=== PATIENT | male | born 1940 | race Caucasian/White ===

== ENCOUNTER 2018-12-30 06:13 | Inpatient (IN) ==
[2018-12-30] MEDS ORDERED: POTASSIUM CHLORIDE RIDER 10 MEQ in PREMIX 1 EACH IV PRN (07:46)
[2018-12-30] MEDS ORDERED: MAGNESIUM SULF RIDER 2 GM in PREMIX 1 EACH IV PRN (07:46)
[2018-12-30] MEDS ORDERED: diphenhydrAMINE CAP 25 MG CAPSULE PO ONE (07:46)
[2018-12-30] MEDS ORDERED: DIAZEPAM 5 MG TABLET PO ONE (07:46)
[2018-12-30] MEDS ORDERED: ASPIRIN 325 MG TABLET PO ONE (07:46)
[2018-12-30] MEDS ORDERED: ASPIRIN 325 MG TABLET ONE (07:49)
[2018-12-30] MEDS ORDERED: DIAZEPAM 5 MG TABLET ONE (07:49)
[2018-12-30] MEDS ORDERED: diphenhydrAMINE CAP 25 MG CAPSULE ONE (07:49)
[2018-12-30] MEDS: SODIUM CHLORIDE 0.9% 1,000 ML IV SCH ×2 (07:55→17:26)
[2018-12-30 08:26] LABS: Basophils % 0.5 % (0.0-0.8); Eosinophils % 0.3 % (0.00-10.9); Hematocrit 38.7 VOL% (42.0-52.0); Hemoglobin 12.5 GM/DL (14.0-18.0); Immature Granulocytes % 0.3 %; Immature Granulocytes Absolute 0.02 #; Lymphocytes % 16.7 % (21.2-54.2); Mean Corpuscular HGB Conc 32.3 GM/DL (32-36); Mean Platelet Volume 10.1 FL (9.6-12.0); Monocytes % 12.3 % (1.7-12.7); Neutrophils % 69.9 % (38.7-73.9); Platelet Count 133 T/CUMM (130-400); Red Blood Count 3.87 MC/CUMM (3.8-5.5); Red Cell Distribution Width 13.2 % (9.3-17.3)
[2018-12-30] MEDS ORDERED: LIDOCAINE 1% 20 ML VIAL ONE (08:32)
[2018-12-30] MEDS ORDERED: HYDROmorphone 2 MG/1 ML VIAL ONE (08:33)
[2018-12-30] MEDS ORDERED: MIDAZOLAM 2 MG/2 ML VIAL ONE (08:33)
[2018-12-30 08:35] LABS: INR 1.1; PT Patient Result 11.4 SECS
[2018-12-30 08:46] LABS: Osmolality,Calculated 286.1 MOS/KG (273-304)
[2018-12-30] MEDS ORDERED: ADENOSINE 90 MG/30 ML VIAL IV ONE (09:23)
[2018-12-30] MEDS ORDERED: HEPARIN 5,000 UNIT/1 ML VIAL ONE (09:25)
[2018-12-30] MEDS ORDERED: NITROPRUSSIDE 50 MG/2 ML VIAL ONE (10:02)
[2018-12-30] MEDS ORDERED: NITROGLYCERIN SL 0.4 MG TABLET SL PRN (10:25)
[2018-12-30] MEDS ORDERED: ACETAMINOPHEN 325 MG TABLET PO PRN (10:25)
[2018-12-30] MEDS ORDERED: ZALEPLON 5 MG CAPSULE PO PRN (10:25)
[2018-12-30] MEDS ORDERED: ONDANSETRON 4 MG/2 ML VIAL IV PRN (10:25)
[2018-12-30 11:34] LABS: Troponin I 0.025 NG/ML (0.00-0.045)
[2018-12-30] MEDS: CARBIDOPA/LEVODOPA 25-100 MG TABLET PO SCH ×3 (15:36→23:41)
[2018-12-30] MEDS ORDERED: MAGNESIUM HYDROXIDE SUSP 30 ML UDCUP PO PRN (16:43)
[2018-12-30] MEDS ORDERED: diphenhydrAMINE CAP 25 MG CAPSULE PO PRN (21:00)
[2018-12-30] MEDS: DONEPEZIL 10 MG TABLET PO SCH (23:40)
[2018-12-30] MEDS: RANOLAZINE 500 MG TABLET PO SCH (23:40)
[2018-12-30] MEDS: TICAGRELOR 90 MG TABLET PO SCH (23:40)
[2018-12-30] MEDS: MEMANTINE 10 MG TABLET PO SCH (23:40)
[2018-12-31 04:19] LABS: Basophils % 0.3 % (0.0-0.8); Hematocrit 43.1 VOL% (42.0-52.0); Hemoglobin 13.5 GM/DL (14.0-18.0); Immature Granulocytes % 0.5 %; Immature Granulocytes Absolute 0.05 #; Lymphocytes # 0.6 10*3/uL (1.4-4.0); Lymphocytes % 5.9 % (21.2-54.2); Mean Corpuscular HGB Conc 31.3 GM/DL (32-36); Mean Corpuscular Volume 102.1 FL (87-102); Mean Platelet Volume 10.8 FL (9.6-12.0); Monocytes % 8.2 % (1.7-12.7); Neutrophils % 85.1 % (38.7-73.9); Platelet Count 151 T/CUMM (130-400); Red Blood Count 4.22 MC/CUMM (3.8-5.5); Red Cell Distribution Width 13.3 % (9.3-17.3); White Blood Count 10.5 T/CUMM (4-12)
[2018-12-31 04:44] LABS: Calcium 9.2 MG/DL (8.5-10.1); Osmolality,Calculated 299.3 MOS/KG (273-304)
[2018-12-31 04:46] LABS: Band Neutrophils 13 % (0-10); Lymphocytes 9 % (20-55); Metamyelocytes 4 %; Myelocytes 4 %; Segmented Neutrophils 63 % (50-85); Total Cells Counted 100
[2018-12-31 04:51] LABS: Blood Urea Nitrogen 27 MG/DL (7-18); Calcium 9.4 MG/DL (8.5-10.1); Glucose 121 MG/DL (74-106); Osmolality,Calculated 295.6 MOS/KG (273-304)
[2018-12-31 04:54] LABS: Burr Cells 2+; Ovalocytes 2+; Platelet Estimate Normal
[2018-12-31 05:02] LABS: Troponin I 0.986 NG/ML (0.00-0.045)
[2018-12-31] MEDS: LEVOTHYROXINE 88 MCG TABLET PO SCH (06:20)
[2018-12-31] MEDS: TICAGRELOR 90 MG TABLET PO SCH ×2 (08:53→21:33)
[2018-12-31] MEDS: ATORVASTATIN 40 MG TABLET PO SCH (08:55)
[2018-12-31] MEDS: PANTOPRAZOLE 40 MG TABLET PO SCH (08:55)
[2018-12-31] MEDS: RANOLAZINE 500 MG TABLET PO SCH ×2 (08:55→21:33)
[2018-12-31] MEDS: FINASTERIDE 5 MG TABLET PO SCH (08:55)
[2018-12-31] MEDS: ALLOPURINOL 100 MG TABLET PO SCH (08:55)
[2018-12-31] MEDS: MEMANTINE 10 MG TABLET PO SCH ×2 (08:55→21:33)
[2018-12-31] MEDS: CYANOCOBALAMIN 500 MCG TABLET PO SCH (08:55)
[2018-12-31] MEDS: ASCORBIC ACID 500 MG TABLET PO SCH (08:55)
[2018-12-31] MEDS: ESCITALOPRAM 10 MG TABLET PO SCH (08:55)
[2018-12-31] MEDS: CARBIDOPA/LEVODOPA 25-100 MG TABLET PO SCH ×4 (08:55→21:33)
[2018-12-31] MEDS: ASPIRIN EC 81 MG TABLET PO SCH (08:55)
[2018-12-31] MEDS: TAMSULOSIN 0.4 MG CAPSULE PO SCH (08:55)
[2018-12-31] MEDS: LINACLOTIDE 145 MCG CAPSULE PO SCH (08:56)
[2018-12-31] MEDS ORDERED: ISOSORBIDE MONONITRATE 30 MG TABLET PO SCH (09:00)
[2018-12-31] MEDS: SODIUM CHLORIDE 0.9% 1,000 ML IV SCH ×2 (09:53→15:36)
[2018-12-31 14:01] LABS: Apearance,Urine CLEAR (Clear); Bilirubin,Urine Negative (Negative); Blood, Urine Negative (Negative); Glucose,Urine (UA) Negative (Negative); Ketones,Urine 5 mg/dL (Negative); Mucus,Urine Occasional /LPF (Occasional); Nitrite,Urine Negative (Negative); Protein,Urine Negative; RBC,Urine 2 /HPF (0-4); Squamous Epithelial Cell,Urine Occasional /HPF (0-10); Urine Color Amber (Yellow); Urine Specific Gravity 1.035 (1.001-1.035); Urine Urobilinogen < 2.0 EU/DL (0.2-1.0); WBC,Urine 2 /HPF (0-6)
[2018-12-31] MEDS: DONEPEZIL 10 MG TABLET PO SCH (21:33)
[2019-01-01 05:19] LABS: Basophils % 0.2 % (0.0-0.8); Eosinophils % 0.2 % (0.00-10.9); Hematocrit 39.6 VOL% (42.0-52.0); Hemoglobin 12.7 GM/DL (14.0-18.0); Immature Granulocytes % 0.8 %; Immature Granulocytes Absolute 0.07 #; Lymphocytes # 0.7 10*3/uL (1.4-4.0); Lymphocytes % 7.9 % (21.2-54.2); Mean Corpuscular HGB Conc 32.1 GM/DL (32-36); Mean Corpuscular Volume 101.3 FL (87-102); Mean Platelet Volume 10.7 FL (9.6-12.0); Monocytes % 8.4 % (1.7-12.7); Neutrophils % 82.5 % (38.7-73.9); Platelet Count 126 T/CUMM (130-400); Red Blood Count 3.91 MC/CUMM (3.8-5.5); Red Cell Distribution Width 13.4 % (9.3-17.3)
[2019-01-01 05:21] LABS: White Blood Count 8.7 T/CUMM (4-12)
[2019-01-01 05:31] LABS: Calcium 9.2 MG/DL (8.5-10.1); Osmolality,Calculated 291.8 MOS/KG (273-304)
[2019-01-01] MEDS: SODIUM CHLORIDE 0.9% 1,000 ML IV SCH (06:16)
[2019-01-01] MEDS: LEVOTHYROXINE 88 MCG TABLET PO SCH (06:17)
[2019-01-01 06:24] LABS: Anisocytosis 1+; Band Neutrophils 3 % (0-10); Lymphocytes 12 % (20-55); Platelet Estimate Decreased; Segmented Neutrophils 85 % (50-85); Total Cells Counted 100
[2019-01-01] MEDS ORDERED: CLOPIDOGREL 300 MG TABLET PO ONE (08:17)
[2019-01-01] MEDS: FINASTERIDE 5 MG TABLET PO SCH (08:54)
[2019-01-01] MEDS: ASCORBIC ACID 500 MG TABLET PO SCH (08:54)
[2019-01-01] MEDS: PANTOPRAZOLE 40 MG TABLET PO SCH (08:54)
[2019-01-01] MEDS: ASPIRIN EC 81 MG TABLET PO SCH (08:54)
[2019-01-01] MEDS: TAMSULOSIN 0.4 MG CAPSULE PO SCH (08:55)
[2019-01-01] MEDS: CARBIDOPA/LEVODOPA 25-100 MG TABLET PO SCH ×5 (08:55→21:37)
[2019-01-01] MEDS: LINACLOTIDE 145 MCG CAPSULE PO SCH (08:55)
[2019-01-01] MEDS: ATORVASTATIN 40 MG TABLET PO SCH (08:56)
[2019-01-01] MEDS: ALLOPURINOL 100 MG TABLET PO SCH (08:56)
[2019-01-01] MEDS: CYANOCOBALAMIN 500 MCG TABLET PO SCH (08:56)
[2019-01-01] MEDS: ESCITALOPRAM 10 MG TABLET PO SCH (08:56)
[2019-01-01] MEDS: MEMANTINE 10 MG TABLET PO SCH ×3 (08:57→21:37)
[2019-01-01] MEDS ORDERED: ALUM/MAG/SIMETH/LIDO VISC 1:1 30 ML BOTTLE PO ONE (10:57)
[2019-01-01] MEDS: DONEPEZIL 10 MG TABLET PO SCH ×2 (21:34→21:37)
[2019-01-02] MEDS: LEVOTHYROXINE 88 MCG TABLET PO SCH (06:12)
[2019-01-02] MEDS ORDERED: ZINC OXIDE PASTE 113 GM TUBE TOP PRN (10:47)
[2019-01-02] MEDS: ASPIRIN EC 81 MG TABLET PO SCH (11:31)
[2019-01-02] MEDS: TAMSULOSIN 0.4 MG CAPSULE PO SCH (11:32)
[2019-01-02] MEDS: ESCITALOPRAM 10 MG TABLET PO SCH (11:32)
[2019-01-02] MEDS: LINACLOTIDE 145 MCG CAPSULE PO SCH (11:32)
[2019-01-02] MEDS: ATORVASTATIN 40 MG TABLET PO SCH (11:32)
[2019-01-02] MEDS: FINASTERIDE 5 MG TABLET PO SCH (11:33)
[2019-01-02] MEDS: CARBIDOPA/LEVODOPA 25-100 MG TABLET PO SCH ×4 (11:33→21:27)
[2019-01-02] MEDS: MEMANTINE 10 MG TABLET PO SCH ×2 (11:33→21:27)
[2019-01-02] MEDS: CYANOCOBALAMIN 500 MCG TABLET PO SCH (11:33)
[2019-01-02] MEDS: CLOPIDOGREL 75 MG TABLET PO SCH (11:33)
[2019-01-02] MEDS: PANTOPRAZOLE 40 MG TABLET PO SCH (11:33)
[2019-01-02] MEDS: ALLOPURINOL 100 MG TABLET PO SCH (11:34)
[2019-01-02] MEDS: ASCORBIC ACID 500 MG TABLET PO SCH (11:34)
[2019-01-02] MEDS: cefTRIAXone 1,000 MG in SYRINGE 1 EACH IV SCH (12:35)
[2019-01-02] MEDS: CLINDAMYCIN INJ 300 MG in PREMIX 1 EACH IV SCH ×2 (12:39→21:26)
[2019-01-02] MEDS: RIVAROXABAN 15 MG TABLET PO SCH (17:55)
[2019-01-02] MEDS: DONEPEZIL 10 MG TABLET PO SCH (21:27)
[2019-01-03] MEDS: CLINDAMYCIN INJ 300 MG in PREMIX 1 EACH IV SCH (04:20)
[2019-01-03] MEDS: LEVOTHYROXINE 88 MCG TABLET PO SCH (06:03)
[2019-01-03] MEDS: ALLOPURINOL 100 MG TABLET PO SCH (08:57)
[2019-01-03] MEDS: TAMSULOSIN 0.4 MG CAPSULE PO SCH (08:57)
[2019-01-03] MEDS: ESCITALOPRAM 10 MG TABLET PO SCH (08:57)
[2019-01-03] MEDS: ASPIRIN EC 81 MG TABLET PO SCH (08:57)
[2019-01-03] MEDS: CLOPIDOGREL 75 MG TABLET PO SCH (08:57)
[2019-01-03] MEDS: FINASTERIDE 5 MG TABLET PO SCH (08:57)
[2019-01-03] MEDS: MEMANTINE 10 MG TABLET PO SCH ×2 (08:58→22:07)
[2019-01-03] MEDS: PANTOPRAZOLE 40 MG TABLET PO SCH (08:58)
[2019-01-03] MEDS: ATORVASTATIN 40 MG TABLET PO SCH (08:58)
[2019-01-03] MEDS: ASCORBIC ACID 500 MG TABLET PO SCH (08:58)
[2019-01-03] MEDS: CARBIDOPA/LEVODOPA 25-100 MG TABLET PO SCH ×4 (08:59→22:07)
[2019-01-03] MEDS: CYANOCOBALAMIN 500 MCG TABLET PO SCH (08:59)
[2019-01-03] MEDS: LINACLOTIDE 145 MCG CAPSULE PO SCH (08:59)
[2019-01-03 09:36] LABS: Basophils % 0.3 % (0.0-0.8); Eosinophils % 0.1 % (0.00-10.9); Hematocrit 36.3 VOL% (42.0-52.0); Hemoglobin 12.1 GM/DL (14.0-18.0); Immature Granulocytes % 0.8 %; Immature Granulocytes Absolute 0.08 #; Lymphocytes # 0.4 10*3/uL (1.4-4.0); Mean Corpuscular HGB Conc 33.3 GM/DL (32-36); Mean Corpuscular Volume 98.1 FL (87-102); Mean Platelet Volume 11.1 FL (9.6-12.0); Monocytes % 7.7 % (1.7-12.7); Neutrophils % 87.1 % (38.7-73.9); Platelet Count 141 T/CUMM (130-400); Red Cell Distribution Width 13.2 % (9.3-17.3); White Blood Count 9.9 T/CUMM (4-12)
[2019-01-03 10:02] LABS: Albumin 2.8 G/DL (3.4-5.0); Bilirubin,Direct 0.5 MG/DL (0.0-0.20); Bilirubin,Indirect 1.5 MG/DL (0.0-1.0); Thyroid Stimulating Hormone 2.25 uIU/ml (0.358-3.74); Total Protein 6.8 G/DL (6.4-8.3)
[2019-01-03 10:08] LABS: Band Neutrophils 8 % (0-10); Lymphocytes 7 % (20-55); Platelet Estimate Adequate; Segmented Neutrophils 79 % (50-85); Total Cells Counted 100
[2019-01-03 10:09] LABS: Anisocytosis Slight; Macrocytosis 1+
[2019-01-03] MEDS: cefTRIAXone 1,000 MG in SYRINGE 1 EACH IV SCH (12:14)
[2019-01-03] MEDS: MEGESTROL 40 MG TABLET PO SCH ×2 (16:36→22:07)
[2019-01-03] MEDS: RIVAROXABAN 15 MG TABLET PO SCH (17:08)
[2019-01-03] MEDS ORDERED: ATORVASTATIN 10 MG TABLET PO SCH (17:09)
[2019-01-03] MEDS: DONEPEZIL 10 MG TABLET PO SCH (22:06)
[2019-01-04] MEDS: SODIUM CHLORIDE 0.45% 1,000 ML IV SCH ×2 (02:22→15:40)
[2019-01-04 04:20] LABS: Basophils % 0.3 % (0.0-0.8); Eosinophils # 0.1 10*3/uL (0.0-0.87); Eosinophils % 0.9 % (0.00-10.9); Hematocrit 34.8 VOL% (42.0-52.0); Hemoglobin 11.7 GM/DL (14.0-18.0); Immature Granulocytes % 1.1 %; Immature Granulocytes Absolute 0.08 #; Lymphocytes # 0.6 10*3/uL (1.4-4.0); Lymphocytes % 8.4 % (21.2-54.2); Mean Corpuscular HGB Conc 33.6 GM/DL (32-36); Mean Corpuscular Volume 97.5 FL (87-102); Monocytes % 11.7 % (1.7-12.7); Neutrophils % 77.6 % (38.7-73.9); Platelet Count 148 T/CUMM (130-400); Red Blood Count 3.57 MC/CUMM (3.8-5.5); Red Cell Distribution Width 13.1 % (9.3-17.3); White Blood Count 7.6 T/CUMM (4-12)
[2019-01-04 04:40] LABS: Alanine Aminotransferase < 9 U/L (16-61); Albumin 2.4 G/DL (3.4-5.0); Alkaline Phosphatase 77 U/L (45-117); Aspartate Amino Transferase 26 U/L (0-37); Blood Urea Nitrogen 18 MG/DL (7-18); Calcium 8.8 MG/DL (8.5-10.1); Glucose 90 MG/DL (74-106); Osmolality,Calculated 289.7 MOS/KG (273-304); Total Protein 5.9 G/DL (6.4-8.3)
[2019-01-04] MEDS: LEVOTHYROXINE 88 MCG TABLET PO SCH (06:19)
[2019-01-04] MEDS: CLOPIDOGREL 75 MG TABLET PO SCH (10:43)
[2019-01-04] MEDS: CARBIDOPA/LEVODOPA 25-100 MG TABLET PO SCH ×4 (10:44→22:01)
[2019-01-04] MEDS: PANTOPRAZOLE 40 MG TABLET PO SCH (10:44)
[2019-01-04] MEDS: ALLOPURINOL 100 MG TABLET PO SCH (10:44)
[2019-01-04] MEDS: FINASTERIDE 5 MG TABLET PO SCH (10:44)
[2019-01-04] MEDS: ESCITALOPRAM 10 MG TABLET PO SCH (10:44)
[2019-01-04] MEDS: ASCORBIC ACID 500 MG TABLET PO SCH (10:45)
[2019-01-04] MEDS: CYANOCOBALAMIN 500 MCG TABLET PO SCH (10:45)
[2019-01-04] MEDS: ASPIRIN EC 81 MG TABLET PO SCH (10:45)
[2019-01-04] MEDS: MEMANTINE 10 MG TABLET PO SCH ×2 (10:46→22:00)
[2019-01-04] MEDS ORDERED: POTASSIUM CHLORIDE RIDER 10 MEQ in PREMIX 1 EACH IV PRN (10:46)
[2019-01-04] MEDS: LINACLOTIDE 145 MCG CAPSULE PO SCH (10:46)
[2019-01-04] MEDS: ATORVASTATIN 10 MG TABLET PO SCH (10:47)
[2019-01-04] MEDS: MEGESTROL 40 MG TABLET PO SCH ×2 (10:47→22:02)
[2019-01-04] MEDS: TAMSULOSIN 0.4 MG CAPSULE PO SCH (10:47)
[2019-01-04] MEDS ORDERED: ZIPRASIDONE 20 MG/1 ML VIAL IM ONE (14:35)
[2019-01-04] MEDS ORDERED: POTASSIUM CHLORIDE 20 MEQ TABLET PO PRN (15:21)
[2019-01-04] MEDS: cefTRIAXone 1,000 MG in SYRINGE 1 EACH IV SCH (19:34)
[2019-01-04] MEDS: QUEtiapine 25 MG TABLET PO SCH (22:00)
[2019-01-04] MEDS: RIVAROXABAN 15 MG TABLET PO SCH (22:00)
[2019-01-04] MEDS: DONEPEZIL 10 MG TABLET PO SCH (22:02)
[2019-01-05 05:15] LABS: Basophils % 0.3 % (0.0-0.8); Eosinophils # 0.1 10*3/uL (0.0-0.87); Eosinophils % 1.7 % (0.00-10.9); Hematocrit 36.1 VOL% (42.0-52.0); Hemoglobin 11.7 GM/DL (14.0-18.0); Immature Granulocytes % 0.8 %; Immature Granulocytes Absolute 0.05 #; Lymphocytes # 0.8 10*3/uL (1.4-4.0); Lymphocytes % 11.6 % (21.2-54.2); Mean Corpuscular HGB Conc 32.4 GM/DL (32-36); Mean Corpuscular Volume 98.6 FL (87-102); Mean Platelet Volume 10.7 FL (9.6-12.0); Monocytes % 15.2 % (1.7-12.7); Neutrophils % 70.4 % (38.7-73.9); Platelet Count 160 T/CUMM (130-400); Red Blood Count 3.66 MC/CUMM (3.8-5.5); Red Cell Distribution Width 13.2 % (9.3-17.3); White Blood Count 6.4 T/CUMM (4-12)
[2019-01-05 05:26] LABS: Alanine Aminotransferase < 6 U/L (16-61); Albumin 2.5 G/DL (3.4-5.0); Alkaline Phosphatase 87 U/L (45-117); Aspartate Amino Transferase 26 U/L (0-37); Blood Urea Nitrogen 16 MG/DL (7-18); Calcium 9.4 MG/DL (8.5-10.1); Glucose 79 MG/DL (74-106); Osmolality,Calculated 289.6 MOS/KG (273-304); Total Protein 6.2 G/DL (6.4-8.3)
[2019-01-05] MEDS: SODIUM CHLORIDE 0.45% 1,000 ML IV SCH ×2 (05:51→17:11)
[2019-01-05] MEDS: LEVOTHYROXINE 88 MCG TABLET PO SCH (06:20)
[2019-01-05] MEDS: PANTOPRAZOLE 40 MG TABLET PO SCH (09:02)
[2019-01-05] MEDS: ASCORBIC ACID 500 MG TABLET PO SCH (09:02)
[2019-01-05] MEDS: CYANOCOBALAMIN 500 MCG TABLET PO SCH (09:02)
[2019-01-05] MEDS: CARBIDOPA/LEVODOPA 25-100 MG TABLET PO SCH ×4 (09:02→21:29)
[2019-01-05] MEDS: ATORVASTATIN 10 MG TABLET PO SCH (09:02)
[2019-01-05] MEDS: MEMANTINE 10 MG TABLET PO SCH ×2 (09:02→21:29)
[2019-01-05] MEDS: ASPIRIN EC 81 MG TABLET PO SCH (09:02)
[2019-01-05] MEDS: ALLOPURINOL 100 MG TABLET PO SCH (09:02)
[2019-01-05] MEDS: ESCITALOPRAM 10 MG TABLET PO SCH (09:02)
[2019-01-05] MEDS: FINASTERIDE 5 MG TABLET PO SCH (09:02)
[2019-01-05] MEDS: QUEtiapine 25 MG TABLET PO SCH ×2 (09:02→21:29)
[2019-01-05] MEDS: MEGESTROL 40 MG TABLET PO SCH ×2 (09:03→21:30)
[2019-01-05] MEDS: TAMSULOSIN 0.4 MG CAPSULE PO SCH (09:03)
[2019-01-05] MEDS: CLOPIDOGREL 75 MG TABLET PO SCH (09:03)
[2019-01-05] MEDS: LINACLOTIDE 145 MCG CAPSULE PO SCH (09:03)
[2019-01-05] MEDS ORDERED: CLINDAMYCIN INJ 300 MG in PREMIX 1 EACH IV SCH (14:00)
[2019-01-05] MEDS: RIVAROXABAN 15 MG TABLET PO SCH (17:10)
[2019-01-05] MEDS: CLINDAMYCIN 150 MG CAPSULE PO SCH ×2 (17:10→21:28)
[2019-01-05] MEDS: DONEPEZIL 10 MG TABLET PO SCH (21:28)
[2019-01-06] MEDS: SODIUM CHLORIDE 0.45% 1,000 ML IV SCH (04:09)
[2019-01-06 05:23] LABS: Basophils % 0.5 % (0.0-0.8); Eosinophils # 0.1 10*3/uL (0.0-0.87); Eosinophils % 2.1 % (0.00-10.9); Hematocrit 36.5 VOL% (42.0-52.0); Hemoglobin 11.7 GM/DL (14.0-18.0); Immature Granulocytes % 1.1 %; Immature Granulocytes Absolute 0.07 #; Lymphocytes % 14.9 % (21.2-54.2); Mean Corpuscular HGB Conc 32.1 GM/DL (32-36); Mean Corpuscular Volume 98.9 FL (87-102); Mean Platelet Volume 10.7 FL (9.6-12.0); Monocytes % 13.2 % (1.7-12.7); Neutrophils % 68.2 % (38.7-73.9); Platelet Count 192 T/CUMM (130-400); Red Blood Count 3.69 MC/CUMM (3.8-5.5); Red Cell Distribution Width 13.2 % (9.3-17.3); White Blood Count 6.6 T/CUMM (4-12)
[2019-01-06 05:55] LABS: Calcium 9.2 MG/DL (8.5-10.1); Osmolality,Calculated 294.3 MOS/KG (273-304)
[2019-01-06] MEDS: LEVOTHYROXINE 88 MCG TABLET PO SCH (06:21)
[2019-01-06] MEDS: CLINDAMYCIN 150 MG CAPSULE PO SCH ×2 (06:21→16:17)
[2019-01-06] MEDS: ALLOPURINOL 100 MG TABLET PO SCH (09:17)
[2019-01-06] MEDS: FINASTERIDE 5 MG TABLET PO SCH (09:18)
[2019-01-06] MEDS: ASPIRIN EC 81 MG TABLET PO SCH (09:18)
[2019-01-06] MEDS: QUEtiapine 25 MG TABLET PO SCH (09:18)
[2019-01-06] MEDS: CYANOCOBALAMIN 500 MCG TABLET PO SCH (09:20)
[2019-01-06] MEDS: ASCORBIC ACID 500 MG TABLET PO SCH (09:20)
[2019-01-06] MEDS: CLOPIDOGREL 75 MG TABLET PO SCH (09:20)
[2019-01-06] MEDS: MEMANTINE 10 MG TABLET PO SCH (09:20)
[2019-01-06] MEDS: ESCITALOPRAM 10 MG TABLET PO SCH (09:20)
[2019-01-06] MEDS: PANTOPRAZOLE 40 MG TABLET PO SCH (09:21)
[2019-01-06] MEDS: ATORVASTATIN 10 MG TABLET PO SCH (09:21)
[2019-01-06] MEDS: CARBIDOPA/LEVODOPA 25-100 MG TABLET PO SCH ×2 (09:21→16:17)
[2019-01-06] MEDS: TAMSULOSIN 0.4 MG CAPSULE PO SCH (09:42)
[2019-01-06] MEDS: LINACLOTIDE 145 MCG CAPSULE PO SCH (10:20)
[2019-01-06] MEDS: MEGESTROL 40 MG TABLET PO SCH (10:20)
[2019-01-06 16:22] VITALS: BP 134/74
== END 2019-01-06 17:06 | DRG 247 ==
LOC: N.CL 06:13 → N.TELEN 13:24 → N.TELES 01-01 14:17
PROVIDERS: ADMIT Family Medicine; ATTEND Family Medicine
PROC: CLDESPG (ICD-10-PCS; 2018-12-30 09:15)

== ENCOUNTER 2019-02-22 11:26 | Inpatient (IN) ==
[2019-02-22 12:30] LABS: Basophils % 0.4 % (0.0-0.8); Hematocrit 36.2 VOL% (42.0-52.0); Hemoglobin 11.3 GM/DL (14.0-18.0); Immature Granulocytes % 0.3 %; Immature Granulocytes Absolute 0.02 #; Lymphocytes # 0.6 10*3/uL (1.4-4.0); Lymphocytes % 8.4 % (21.2-54.2); Mean Corpuscular HGB Conc 31.2 GM/DL (32-36); Mean Corpuscular Volume 100.3 FL (87-102); Mean Platelet Volume 10.3 FL (9.6-12.0); Monocytes % 9.2 % (1.7-12.7); Neutrophils % 81.7 % (38.7-73.9); Platelet Count 170 T/CUMM (130-400); Red Blood Count 3.61 MC/CUMM (3.8-5.5); Red Cell Distribution Width 14.5 % (9.3-17.3); White Blood Count 7.1 T/CUMM (4-12)
[2019-02-22 12:49] LABS: Amorphous Crystals,Urine Moderate /HPF (Few); Apearance,Urine Slightly Hazy (Clear); Bacteria,Urine Moderate /HPF (Few); Bilirubin,Urine Negative (Negative); Blood, Urine Moderate mg/dL (Negative); Glucose,Urine (UA) Negative (Negative); Hyaline Casts,Urine 4 /LPF (0-3); Ketones,Urine 5 mg/dL (Negative); Mucus,Urine Occasional /LPF (Occasional); Nitrite,Urine Negative (Negative); Protein,Urine Negative; RBC,Urine 10 /HPF (0-4); Squamous Epithelial Cell,Urine Occasional /HPF (0-10); Urine Color Yellow (Yellow); Urine Specific Gravity 1.015 (1.001-1.035); Urine Urobilinogen < 2.0 EU/DL (0.2-1.0); WBC,Urine 106 /HPF (0-6)
[2019-02-22 12:50] LABS: Albumin 3.3 G/DL (3.4-5.0); Bilirubin,Total 1.5 MG/DL (0.2-1.0); Calcium 9.6 MG/DL (8.5-10.1); Osmolality,Calculated 295.6 MOS/KG (273-304); Total Protein 6.9 G/DL (6.4-8.3)
[2019-02-22] MEDS ORDERED: LEVOFLOXACIN INJ 500 MG in PREMIX 1 EACH IV STA (13:18)
[2019-02-22] MEDS ORDERED: SODIUM CHLORIDE 0.9% 1,900 ML IV ONE (13:26)
[2019-02-22 13:44] LABS: Lymphocytes 11 % (20-55); Ovalocytes 1+; Platelet Estimate Normal; Segmented Neutrophils 80 % (50-85); Total Cells Counted 100
[2019-02-22 13:45] LABS: Anisocytosis Slight; Burr Cells Slight
[2019-02-22] MEDS ORDERED: RANOLAZINE 500 MG TABLET PO PRN (16:06)
[2019-02-22] MEDS ORDERED: NITROGLYCERIN SL 0.4 MG TABLET SL PRN (16:06)
[2019-02-22] MEDS ORDERED: hydrALAZINE 20 MG/1 ML VIAL IV PRN (16:10)
[2019-02-22] MEDS ORDERED: ALBUTEROL/IPRATROPIUM 3 ML NEB RESP TX PRN (16:10)
[2019-02-22] MEDS ORDERED: MAGNESIUM SULF RIDER 2 GM in PREMIX 1 EACH IV PRN (16:13)
[2019-02-22] MEDS ORDERED: POTASSIUM CHLORIDE RIDER 10 MEQ in PREMIX 1 EACH IV PRN (16:13)
[2019-02-22] MEDS ORDERED: POTASSIUM CHLORIDE 20 MEQ TABLET PO PRN (16:13)
[2019-02-22] MEDS ORDERED: MAGNESIUM SULF RIDER 4 GM in PREMIX 1 EACH IV PRN (16:13)
[2019-02-22] MEDS ORDERED: ACETAMINOPHEN 325 MG TABLET PO PRN (16:20)
[2019-02-22] MEDS ORDERED: ONDANSETRON 4 MG/2 ML VIAL IV PRN (16:20)
[2019-02-22] MEDS: SODIUM CHLORIDE 0.9% 1,000 ML IV SCH (18:03)
[2019-02-22] MEDS: CARBIDOPA/LEVODOPA 25-100 MG TABLET PO SCH ×2 (18:04→21:06)
[2019-02-22] MEDS: methylPREDNISolone SOD SUC 40 MG/1 ML VIAL IV SCH (18:04)
[2019-02-22] MEDS: MEMANTINE 10 MG TABLET PO SCH (21:05)
[2019-02-22] MEDS: DONEPEZIL 10 MG TABLET PO SCH (21:05)
[2019-02-22] MEDS: MEGESTROL 40 MG TABLET PO SCH (21:05)
[2019-02-22] MEDS: DOCUSATE SODIUM 100 MG CAPSULE PO SCH (21:05)
[2019-02-22] MEDS: QUEtiapine 25 MG TABLET PO SCH (21:06)
[2019-02-23 04:03] LABS: Basophils % 0.1 % (0.0-0.8); Hematocrit 33.1 VOL% (42.0-52.0); Hemoglobin 10.3 GM/DL (14.0-18.0); Immature Granulocytes % 0.5 %; Immature Granulocytes Absolute 0.04 #; Lymphocytes # 0.5 10*3/uL (1.4-4.0); Lymphocytes % 5.8 % (21.2-54.2); Mean Corpuscular HGB Conc 31.1 GM/DL (32-36); Mean Corpuscular Volume 101.2 FL (87-102); Mean Platelet Volume 10.7 FL (9.6-12.0); Monocytes % 4.8 % (1.7-12.7); Neutrophils % 88.8 % (38.7-73.9); Platelet Count 146 T/CUMM (130-400); Red Blood Count 3.27 MC/CUMM (3.8-5.5); Red Cell Distribution Width 14.5 % (9.3-17.3); White Blood Count 8.2 T/CUMM (4-12)
[2019-02-23 04:49] LABS: Calcium 9.2 MG/DL (8.5-10.1); Osmolality,Calculated 297.3 MOS/KG (273-304)
[2019-02-23 05:12] LABS: Band Neutrophils 3 % (0-10); Lymphocytes 3 % (20-55); Platelet Estimate Adequate; Segmented Neutrophils 90 % (50-85); Total Cells Counted 100
[2019-02-23] MEDS: methylPREDNISolone SOD SUC 40 MG/1 ML VIAL IV SCH ×2 (06:37→17:33)
[2019-02-23] MEDS: LEVOTHYROXINE 88 MCG TABLET PO SCH (06:38)
[2019-02-23] MEDS ORDERED: FUROSEMIDE 20 MG TABLET PO SCH (09:00)
[2019-02-23] MEDS: ASPIRIN EC 81 MG TABLET PO SCH (14:39)
[2019-02-23] MEDS: DOCUSATE SODIUM 100 MG CAPSULE PO SCH ×2 (14:39→22:04)
[2019-02-23] MEDS: ATORVASTATIN 40 MG TABLET PO SCH (14:40)
[2019-02-23] MEDS: TAMSULOSIN 0.4 MG CAPSULE PO SCH (14:40)
[2019-02-23] MEDS: ISOSORBIDE MONONITRATE 30 MG TABLET PO SCH (14:40)
[2019-02-23] MEDS: LINACLOTIDE 145 MCG CAPSULE PO SCH (14:40)
[2019-02-23] MEDS: CLOPIDOGREL 75 MG TABLET PO SCH (14:40)
[2019-02-23] MEDS: MEGESTROL 40 MG TABLET PO SCH ×2 (14:40→22:04)
[2019-02-23] MEDS: ESCITALOPRAM 10 MG TABLET PO SCH (14:40)
[2019-02-23] MEDS: MEMANTINE 10 MG TABLET PO SCH ×2 (14:40→22:04)
[2019-02-23] MEDS: METOPROLOL SUCCINATE XL 25 MG TABLET PO SCH (14:42)
[2019-02-23] MEDS: ALLOPURINOL 100 MG TABLET PO SCH (14:42)
[2019-02-23] MEDS: FINASTERIDE 5 MG TABLET PO SCH (14:42)
[2019-02-23] MEDS: PANTOPRAZOLE 40 MG TABLET PO SCH ×2 (14:42)
[2019-02-23] MEDS: ASCORBIC ACID 500 MG TABLET PO SCH (14:42)
[2019-02-23] MEDS: CARBIDOPA/LEVODOPA 25-100 MG TABLET PO SCH ×4 (14:42→22:04)
[2019-02-23] MEDS: SODIUM CHLORIDE 0.9% 1,000 ML IV SCH (14:43)
[2019-02-23] MEDS ORDERED: LEVOFLOXACIN INJ 250 MG in PREMIX 1 EACH IV SCH (16:00)
[2019-02-23] MEDS: DONEPEZIL 10 MG TABLET PO SCH (22:03)
[2019-02-23] MEDS: QUEtiapine 25 MG TABLET PO SCH (22:04)
[2019-02-24] MEDS: methylPREDNISolone SOD SUC 40 MG/1 ML VIAL IV SCH ×2 (07:08→18:09)
[2019-02-24] MEDS: LEVOTHYROXINE 88 MCG TABLET PO SCH (07:08)
[2019-02-24] MEDS: ESCITALOPRAM 10 MG TABLET PO SCH (08:37)
[2019-02-24] MEDS: ATORVASTATIN 40 MG TABLET PO SCH (08:37)
[2019-02-24] MEDS: ISOSORBIDE MONONITRATE 30 MG TABLET PO SCH (08:37)
[2019-02-24] MEDS: FINASTERIDE 5 MG TABLET PO SCH (08:38)
[2019-02-24] MEDS: ASPIRIN EC 81 MG TABLET PO SCH (08:38)
[2019-02-24] MEDS: PANTOPRAZOLE 40 MG TABLET PO SCH ×2 (08:38→08:41)
[2019-02-24] MEDS: MEGESTROL 40 MG TABLET PO SCH ×2 (08:38→21:13)
[2019-02-24] MEDS: DOCUSATE SODIUM 100 MG CAPSULE PO SCH ×2 (08:38→21:13)
[2019-02-24] MEDS: MEMANTINE 10 MG TABLET PO SCH ×2 (08:38→21:13)
[2019-02-24] MEDS: TAMSULOSIN 0.4 MG CAPSULE PO SCH (08:38)
[2019-02-24] MEDS: CLOPIDOGREL 75 MG TABLET PO SCH (08:38)
[2019-02-24] MEDS: METOPROLOL SUCCINATE XL 25 MG TABLET PO SCH (08:38)
[2019-02-24] MEDS: ASCORBIC ACID 500 MG TABLET PO SCH (08:38)
[2019-02-24] MEDS: ALLOPURINOL 100 MG TABLET PO SCH (08:38)
[2019-02-24] MEDS: LINACLOTIDE 145 MCG CAPSULE PO SCH (08:39)
[2019-02-24] MEDS: SODIUM CHLORIDE 0.9% 1,000 ML IV SCH (08:41)
[2019-02-24] MEDS: CARBIDOPA/LEVODOPA 25-100 MG TABLET PO SCH ×4 (08:42→21:14)
[2019-02-24] MEDS: LEVOFLOXACIN INJ 500 MG in PREMIX 1 EACH IV SCH (18:08)
[2019-02-24] MEDS: QUEtiapine 25 MG TABLET PO SCH (21:13)
[2019-02-24] MEDS: DONEPEZIL 10 MG TABLET PO SCH (21:13)
[2019-02-25] MEDS: methylPREDNISolone SOD SUC 40 MG/1 ML VIAL IV SCH ×2 (05:03→16:32)
[2019-02-25] MEDS: SODIUM CHLORIDE 0.9% 1,000 ML IV SCH (05:04)
[2019-02-25] MEDS: LEVOTHYROXINE 88 MCG TABLET PO SCH (06:24)
[2019-02-25] MEDS: ASPIRIN EC 81 MG TABLET PO SCH (08:58)
[2019-02-25] MEDS: ESCITALOPRAM 10 MG TABLET PO SCH (08:59)
[2019-02-25] MEDS: CLOPIDOGREL 75 MG TABLET PO SCH (08:59)
[2019-02-25] MEDS: DOCUSATE SODIUM 100 MG CAPSULE PO SCH ×2 (08:59→20:39)
[2019-02-25] MEDS: MEMANTINE 10 MG TABLET PO SCH ×2 (08:59→20:39)
[2019-02-25] MEDS: ATORVASTATIN 40 MG TABLET PO SCH (08:59)
[2019-02-25] MEDS: MEGESTROL 40 MG TABLET PO SCH ×2 (08:59→20:39)
[2019-02-25] MEDS: TAMSULOSIN 0.4 MG CAPSULE PO SCH (08:59)
[2019-02-25] MEDS: ISOSORBIDE MONONITRATE 30 MG TABLET PO SCH (08:59)
[2019-02-25] MEDS: CARBIDOPA/LEVODOPA 25-100 MG TABLET PO SCH ×4 (09:00→20:39)
[2019-02-25] MEDS: PANTOPRAZOLE 40 MG TABLET PO SCH ×2 (09:00)
[2019-02-25] MEDS: ASCORBIC ACID 500 MG TABLET PO SCH (09:00)
[2019-02-25] MEDS: METOPROLOL SUCCINATE XL 25 MG TABLET PO SCH (09:00)
[2019-02-25] MEDS: ALLOPURINOL 100 MG TABLET PO SCH (09:00)
[2019-02-25] MEDS: FINASTERIDE 5 MG TABLET PO SCH (09:01)
[2019-02-25 09:20] LABS: Basophils % 0.1 % (0.0-0.8); Hematocrit 35.5 VOL% (42.0-52.0); Hemoglobin 11.6 GM/DL (14.0-18.0); Immature Granulocytes % 0.9 %; Immature Granulocytes Absolute 0.09 #; Lymphocytes # 0.5 10*3/uL (1.4-4.0); Lymphocytes % 5.4 % (21.2-54.2); Mean Corpuscular HGB Conc 32.7 GM/DL (32-36); Mean Corpuscular Volume 98.1 FL (87-102); Mean Platelet Volume 10.7 FL (9.6-12.0); Monocytes % 3.6 % (1.7-12.7); NRBC # 0.02 10*3/uL; Platelet Count 182 T/CUMM (130-400); Red Blood Count 3.62 MC/CUMM (3.8-5.5); Red Cell Distribution Width 13.7 % (9.3-17.3); White Blood Count 9.7 T/CUMM (4-12)
[2019-02-25 09:39] LABS: Calcium 9.2 MG/DL (8.5-10.1)
[2019-02-25] MEDS: LINACLOTIDE 145 MCG CAPSULE PO SCH (12:33)
[2019-02-25] MEDS: LEVOFLOXACIN INJ 500 MG in PREMIX 1 EACH IV SCH (15:42)
[2019-02-25] MEDS: DONEPEZIL 10 MG TABLET PO SCH (20:39)
[2019-02-25] MEDS: QUEtiapine 25 MG TABLET PO SCH (20:39)
[2019-02-26] MEDS: methylPREDNISolone SOD SUC 40 MG/1 ML VIAL IV SCH (05:41)
[2019-02-26] MEDS: CARBIDOPA/LEVODOPA 25-100 MG TABLET PO SCH (09:23)
[2019-02-26] MEDS: METOPROLOL SUCCINATE XL 25 MG TABLET PO SCH (09:23)
[2019-02-26] MEDS: LEVOTHYROXINE 88 MCG TABLET PO SCH (09:23)
[2019-02-26] MEDS: CLOPIDOGREL 75 MG TABLET PO SCH (09:24)
[2019-02-26] MEDS: MEGESTROL 40 MG TABLET PO SCH (09:24)
[2019-02-26] MEDS: TAMSULOSIN 0.4 MG CAPSULE PO SCH (09:24)
[2019-02-26] MEDS: ASCORBIC ACID 500 MG TABLET PO SCH (09:24)
[2019-02-26] MEDS: ESCITALOPRAM 10 MG TABLET PO SCH (09:24)
[2019-02-26] MEDS: ISOSORBIDE MONONITRATE 30 MG TABLET PO SCH (09:24)
[2019-02-26] MEDS: FINASTERIDE 5 MG TABLET PO SCH (09:24)
[2019-02-26] MEDS: ALLOPURINOL 100 MG TABLET PO SCH (09:24)
[2019-02-26] MEDS: ASPIRIN EC 81 MG TABLET PO SCH (09:24)
[2019-02-26] MEDS: ATORVASTATIN 40 MG TABLET PO SCH (09:25)
[2019-02-26] MEDS: MEMANTINE 10 MG TABLET PO SCH (09:25)
[2019-02-26] MEDS: LINACLOTIDE 145 MCG CAPSULE PO SCH (09:30)
[2019-02-26] MEDS: PANTOPRAZOLE 40 MG TABLET PO SCH ×2 (09:30)
[2019-02-26] MEDS: DOCUSATE SODIUM 100 MG CAPSULE PO SCH (09:30)
[2019-02-26 12:00] VITALS: BP 146/84
== END 2019-02-26 13:48 | DRG 871 ==
LOC: EDBD → EDUNIT# → N.ED 11:26 → N.EDINP 13:31 → N.ICU 15:05 → N.TELES 02-24 17:14
PROVIDERS: ADMIT Family Medicine; ATTEND Family Medicine